=== PATIENT | male | born 1975 | race Caucasian/White ===

== ENCOUNTER 2017-06-18 22:42 | Emergency (ER) | payer SELFPAY | END 2017-06-19 00:17 | disposition left against medical advice (07) | LOC: EDBD 22:42 → ER 22:50 | DX: S01.91XA Laceration without foreign body of unspecified part of head, initial encounter (principal); Z53.21 Procedure and treatment not carried out due to patient leaving prior to being seen by health care provider; Y08.89XA Assault by other specified means, initial encounter; Y93.89 Activity, other specified; Y99.8 Other external cause status; Y92.89 Other specified places as the place of occurrence of the external cause ==

== ENCOUNTER 2021-02-04 03:04 | Emergency (ER) | payer SELFPAY ==
[~2021-02-04] VITALS: Ht 177.8 cm; Wt 74.8 kg
[2021-02-04] MEDS ORDERED: SODIUM CHLORIDE 0.9% 1,000 ML IV ONE (04:00)
[2021-02-04 04:05] LABS: Basophils # (auto) 0 10 ^3/uL (0-0.2); Basophils % (auto) 0.2 % (0.0-2.0); Eosinophils # (auto) 0.2 10 ^3/uL (0-0.8); Eosinophils % (auto) 2.7 % (0.0-7.0); Hematocrit 37.3 % (41.0-53.0); Hemoglobin 12.5 g/dL (13.5-17.5); Lymphocytes # (auto) 1.4 10 ^3/uL (0.4-5.4); Lymphocytes % (auto) 20.8 % (10.0-50.0); Mean Corpuscular Hemoglobin 29.5 pg (28.0-32.0); Mean Corpuscular Hgb Conc. 33.5 g/dL (32.0-36.0); Mean Corpuscular Volume 87.9 fL (80.0-100.0); Monocytes # (auto) 0.5 10 ^3/uL (0-1.3); Monocytes % (auto) 7.3 % (0.0-12.0); Neutrophils # (auto) 4.7 10 ^3/uL (1.6-8.6); Nucleated Red Blood Cells % 0.1 %; Platelet Count (auto) 248 10^3/uL (140-450); Red Blood Cells 4.25 10^6/uL (4.5-5.90); Red Cell Distribution Width 13.5 % (11.8-14.3); White Blood Cell 6.8 10^3/uL (4.4-10.8)
[2021-02-04 04:29] LABS: Albumin 3.5 g/dL (3.4-5.0); Anion Gap 7 (5-15); Blood Urea Nitrogen 18 mg/dL (7-18); Calcium 8.7 mg/dL (8.5-10.1); Carbon Dioxide 26 mmol/L (21-32); Chloride 109 mmol/L (98-107); Glucose 133 mg/dL (74-106); Potassium 3.7 mmol/L (3.5-5.1); Sodium 142 mmol/L (136-145)
[2021-02-04 04:32] LABS: Alanine Aminotransferase 37 U/L (16-61); Alkaline Phosphatase 120 U/L (45-117); Aspartate Aminotransferase 41 U/L (15-37); BUN/Creatinine Ratio 14.4; Bilirubin, Total 0.3 mg/dL (0.2-1.0); GFR African American 81 mL/min; GFR Non-African American 67 mL/min; Total Protein 7.2 g/dL (6.4-8.2)
[2021-02-04 04:35] LABS: Blood Alcohol < 3.0 mg/dL (0-5); Salicylate < 1.7 mg/dL (2.8-20.0)
[2021-02-04 04:36] LABS: Acetaminophen < 2.0 ug/mL (10-30)
[2021-02-04 07:00] VITALS: BP 115/77
== END 2021-02-04 08:27 | disposition home or self-care (01) ==
LOC: ER 03:04 → EDBD 03:04 → ER 08:27
DX: T40.411A Poisoning by fentanyl or fentanyl analogs, accidental (unintentional), initial encounter (principal); F17.210 Nicotine dependence, cigarettes, uncomplicated; F12.10 Cannabis abuse, uncomplicated; F15.10 Other stimulant abuse, uncomplicated; Z59.0 Homelessness; Y92.89 Other specified places as the place of occurrence of the external cause
CPT/HCPCS: 36415; 80053; 80320; 80329; 85025; 96360; 96361; 99283; J7030